=== PATIENT | male | born 1975 | race Two or more races ===

== ENCOUNTER → 2017-07-12 | Outpatient (CLI) | payer OTHER ==
--- NOTE | 2017-07-12 14:28 | HKNOTE ---
DATE OF SERVICE: 07/12/2017 CHIEF COMPLAINT: Left hip pain. HISTORY OF PRESENT ILLNESS: This is a 42-year-old male who had a previous injury to his left hip on 01/15/2016. He fell off his retractor. He was taken to [facility]. He had a closed redu ction of his hip. He had a posterior wall acetabular fracture. He is using a cane for ambulation. His pain has improved. He has occasional pain in his buttock. He denies any radiation of the pain . He has been able to perform his activities of daily living. He does not take any pain medication s. He has no other complaints. GAIT: Nonantalgic gait reciprocal gait pattern. PHYSICAL EXAMINATION: LEFT HIP EXAM: 0 to 120 degrees of flexion, 50 degrees external rotation, 30 degrees of internal ro tation, 30 degrees of abduction. Negative straight leg raise negative Aura's. No obligate externa l rotation. Leg lengths are equal. X-rays of the left hip do not demonstrate any fractures or disl ocations. There are no degenerative changes seen. IMPRESSION: A 42-year-old male with a previous left hip injury. PLAN: He can continue to be weightbearing as tolerated. I discussed with him the risk of possible osteoarthritis of the left hip in the future. He can follow up with me as needed. Dictated By: CASSANDRA LEYVA/JORDYN Conf#: [id number] DID#: [id number]
== END | disposition home or self-care (01) ==
LOC: HKI 13:21
PROVIDERS: ATTEND Orthopaedic Surgery Adult Reconstructive Orthopaedic Surgery
DX: S79.912D Unspecified injury of left hip, subsequent encounter (principal); X58.XXXD Exposure to other specified factors, subsequent encounter; W19.XXXD Unspecified fall, subsequent encounter
CPT/HCPCS: G0463